=== PATIENT | male | born 1960 | race Caucasian/White ===

== ENCOUNTER 2017-04-10 12:36 | Inpatient (IN) | payer MEDICARE, MEDICAID ==
[~2017-04-10] VITALS: Ht 172.7 cm; Wt 82.7 kg
--- NOTE | 2017-04-10 13:15 | NUR ---
BB FAMILY FOR MED CLEARANCE TO GO BACK TO [facility], calli noted, vss, resp even and unlabored, waiting for md baptiste.
[2017-04-10 13:48] LABS: BASOPHILS # (AUTO) 0.2 /CMM (0.0-0.2); BASOPHILS % (AUTO) 1.7 % (0.0-2.0); EOSINOPHILS # (AUTO) 0.1 /CMM (0.0-0.7); EOSINOPHILS % (AUTO) 0.6 % (0.0-6.0); HEMATOCRIT 50 % (39-51); HEMOGLOBIN 16.6 g/dL (13.5-17.5); LYMPHOCYTES # (AUTO) 1.4 /CMM (0.8-4.8); LYMPHOCYTES % (AUTO) 14.4 % (20.0-44.0); MEAN CORPUSCULAR HEMOGLOBIN 31 PG (26.0-33.0); MEAN CORPUSCULAR HGB CONC 33 g/dl (31.0-36.0); MEAN CORPUSCULAR VOLUME 94 fL (80-96); MONOCYTES # (AUTO) 0.9 /CMM (0.1-1.30); MONOCYTES % (AUTO) 9.1 % (2.0-12.0); NEUTROPHILS # (AUTO) 6.9 /CMM (1.8-8.9); NEUTROPHILS % (AUTO) 74.2 % (43.0-81.0); PLATELET COUNT (AUTO) 184 /CMM (150-450); RDW COEFFICIENT OF VARIATION 12.2 (11.5-15.0); RED BLOOD CELL COUNT(AUTO) 5.29 MIL/uL (4.5-6.0); WHITE BLOOD COUNT (AUTO) 9.5 K/uL (4.3-11.0)
[2017-04-10 13:56] LABS: CALCIUM, SERUM 10.2 mg/dL (8.5-10.1); CREATININE 1.4 mg/dL (0.6-1.3); POTASSIUM 3.7 mmol/L (3.5-5.1)
--- NOTE | 2017-04-10 14:52 | NUR ---
REPORT GIVEN TO SASHA RN; CONTINUE PLAN OF CARE.
[2017-04-10] MEDS ORDERED: PRED2.5T PO (15:01)
[2017-04-10] MEDS ORDERED: LEVE500T9 PO (15:01)
[2017-04-10] MEDS ORDERED: TACR5CAP3 PO (15:01)
[2017-04-10] MEDS ORDERED: GABA-532 PO (15:01)
[2017-04-10] MEDS ORDERED: SIRO0.5T3 PO (15:01)
[2017-04-10] MEDS ORDERED: SULF1TAB48 PO (15:01)
[2017-04-10] MEDS ORDERED: PHEN300C6 PO (15:01)
--- NOTE | 2017-04-10 15:04 | NUR ---
MS RN ADMITTING NOTES PT ADMITTED TO UNIT VIA WHEELCHAIR ACCOMPANIED BY ER NURSE. A/O X 3. VERBALLY RESPONSIVE WITH NO C/O PAIN OR DISCOMFORTS. PT WT ADMITTING DIAGNOSIS OF RENAL INSUFFICIENTLY WITH SIGNIFICANT HX OF RESPIRATORY DISTRESS, LUNG INFECTION, KIDNEY TRANSPLANT, SEIZURE AND DEMENTIA. PT ORIENTED TO HIS ROOM AND UNIT. ON ROOM AIR, BREATHING EVEN AND UNLABORED. REFUSED IV ACCESS. SKIN IS INTACT. V/S TAKEN AND RECORDED. PLACED BED IN LOW, LOCK WITH SIDE-RAILS UP X2. CALL LIGHT AND BEDSIDE TABLE PLACED WITHIN EASY REACH OF PT. MD MADE AWARE OF ADMISSION. WILL CONTINUE TO MONITOR.
[2017-04-10 16:00] VITALS: BP 122/82
[2017-04-10] MEDS ORDERED: ZOLPIDEM TARTRATE 5 MG TABLET PO PRN (16:30)
[2017-04-10] MEDS ORDERED: Z GUARD REMEDY 2 OZ OINT TP PRN (16:30)
[2017-04-10] MEDS ORDERED: HYDROCODONE/APAP 5/325MG 1 EACH TABLET PO PRN (16:30)
[2017-04-10] MEDS ORDERED: MAG HYDROX/AL HYDROX/SIMETH 30 ML UDC PO PRN (16:30)
[2017-04-10] MEDS ORDERED: ONDANSETRON HCL/PF 4 MG/2 ML VIAL IVP PRN (16:30)
[2017-04-10] MEDS ORDERED: MAGNESIUM HYDROXIDE 30 ML UDC PO PRN (16:30)
[2017-04-10] MEDS: GABAPENTIN 100 MG CAPSULE PO SCH (18:16)
[2017-04-10] MEDS: TACROLIMUS ANHYDROUS PO SCH (19:14)
--- NOTE | 2017-04-10 19:40 | NUR ---
MS RN CLOSING NOTES: PT AWAKE AND RESTING IN BED. A/O X 4 AND VERBALLY RESPONSIVE. NO SIGNIFICANT CHANGES NOTED SINCE ADMISSION THIS AFTERNOON. ON ROOM AIR, BREATHING EVEN AND UNLABORED. ALL NEEDS AND CARE ATTENDED WELL. BED IN LOW/ LOCKED POSITION WITH SIDE RAILS X 2 UP. BEDSIDE TABLE AND CALL LIGHT WITHIN PT'S REACH. ENDORSED TO OVERCOIL STEPPER NURSE FOR NEFTALI..
[2017-04-10 20:00] VITALS: BP 126/74
--- NOTE | 2017-04-10 20:00 | NUR ---
MS RN: RECEIVED PATIENT ON BED, AWAKE, PATIENT APPEARS PLEASANT, HYPERVERBAL, ABLE TO MAKE NEEDS KNOWN. NO COMPLAINS OF PAIN OR DISCOMFORT THIS TIME OF ASSESSMENT. NO COMPLICATIONS NOTED THIS TIME. WILL MONITOR PATIENT.
[2017-04-10] MEDS: LEVETIRACETAM (250 MG) 250 MG TABLET PO SCH (21:16)
[2017-04-10] MEDS: PHENYTOIN EXTENDED RELEASE 100 MG CAPSULE PO SCH (21:17)
[2017-04-10] MEDS: ACETAMINOPHEN 325 MG TABLET PO PRN (21:20)
--- NOTE | 2017-04-11 07:00 | NUR ---
MS RN CLOSING NOTES: PATIENT IN BED, ASLEEP,. EASILY AROUSES. NO COMPLAINS OF PAIN OR DISCOMFORT THIS TIME. WILL ENDORSE PATIENT TO DAY SHIFT NURSE.
--- NOTE | 2017-04-11 07:15 | NUR ---
RN NOTES PT IS RESTING IN BED COMFORTABLY ON RA, RESPIRATIONS ARE EVEN AND UNLABORED. NO IV ACCESS. SAFETY MEASURES ARE IN PLACE, CALL LIGHT IS IN REACH. WILL CONTINUE TO MONITOR.
[2017-04-11 07:55] LABS: CALCIUM, SERUM 9.8 mg/dL (8.5-10.1); CREATININE 1.3 mg/dL (0.6-1.3); MAGNESIUM 1.5 mg/dL (1.8-2.4); PHOSPHORUS 2.4 mg/dL (2.5-4.9); POTASSIUM 3.8 mmol/L (3.5-5.1)
[2017-04-11 08:00] VITALS: BP 135/75
[2017-04-11] MEDS: TACROLIMUS ANHYDROUS PO SCH ×3 (08:20→17:18)
[2017-04-11] MEDS: GABAPENTIN 100 MG CAPSULE PO SCH ×3 (08:20→17:18)
[2017-04-11] MEDS: predniSONE 10 MG TABLET PO SCH (08:20)
[2017-04-11] MEDS: LEVETIRACETAM (250 MG) 250 MG TABLET PO SCH ×2 (08:21→21:03)
[2017-04-11 10:53] LABS: BASOPHILS # (AUTO) 0.1 /CMM (0.0-0.2); BASOPHILS % (AUTO) 0.8 % (0.0-2.0); EOSINOPHILS # (AUTO) 0.1 /CMM (0.0-0.7); EOSINOPHILS % (AUTO) 2.2 % (0.0-6.0); HEMATOCRIT 50 % (39-51); HEMOGLOBIN 16.1 g/dL (13.5-17.5); LYMPHOCYTES % (AUTO) 29.1 % (20.0-44.0); MEAN CORPUSCULAR HEMOGLOBIN 31 PG (26.0-33.0); MEAN CORPUSCULAR HGB CONC 32 g/dl (31.0-36.0); MEAN CORPUSCULAR VOLUME 95 fL (80-96); MONOCYTES # (AUTO) 0.8 /CMM (0.1-1.30); MONOCYTES % (AUTO) 11.3 % (2.0-12.0); NEUTROPHILS # (AUTO) 3.8 /CMM (1.8-8.9); NEUTROPHILS % (AUTO) 56.6 % (43.0-81.0); PLATELET COUNT (AUTO) 182 /CMM (150-450); RDW COEFFICIENT OF VARIATION 13.6 (11.5-15.0); RED BLOOD CELL COUNT(AUTO) 5.26 MIL/uL (4.5-6.0); WHITE BLOOD COUNT (AUTO) 6.7 K/uL (4.3-11.0)
[2017-04-11] MEDS ORDERED: K PHOS NEUTRAL 250 MG TABLET PO ONE (12:00)
[2017-04-11] MEDS ORDERED: Magnesium 1GM/D5W 100ML PREMIX 100 ML IV SCH (12:00)
[2017-04-11] MEDS ORDERED: MAGNESIUM OXIDE 400 MG TABLET PO ONE (12:00)
[2017-04-11 16:00] VITALS: BP 134/76
[2017-04-11] MEDS ORDERED: POLYVINYL ALCOHOL 15 ML BOTTLE EACHEYE PRN (16:00)
[2017-04-11] MEDS: SIROLIMUS 0.5 MG TABLET PO SCH (17:18)
[2017-04-11] MEDS: SIROLIMUS 2 MG PO SCH (17:21)
--- NOTE | 2017-04-11 18:44 | NUR ---
RN NOTES PT RESTING IN BED ON RA, RESPIRATIONS ARE EVEN AND UNLABORED. PT SHOWS NO SIGNS OF DISTRESS. ALL MEDS WERE GIVEN ORDERED, PT NEEDS MET. SAFETY MEASURES ARE IN PLACE, CALL LIGHT IS IN REACH. WILL ENDORSE TO CISTERN ROOM WORKING SUPERVISOR RN FOR CONTINUITY OF CARE.
[2017-04-11 20:00] VITALS: BP 102/62
--- NOTE | 2017-04-11 20:00 | NUR ---
RN NOTE VSS 97.9-70-20 BP 102/62. SATS 99% ON ROOM AIR. PATIENT IS A&O WITH A SLIGHTLY GARBLED SPEECH BUT APPROPRIATE RESPONSES. PATIENT'S SKIN IS WARM, DRY, AND INTACT. PATIENT HAS A RIGHT UPPER ARM AV SHUNT WITH A GOOD BRUIT & THRILL. PATIENT DOES ALSO VOID QUANTITY SUFFICIENT OF A CLEAR, YELLOW, URINE. ABDOMEN SOFT WITH AUDIBLE BOWEL SOUNDS. NO JVD BUT PATIENT HAS A 1+, NONPITTING EDEMA TO BLES BUT WITH GOOD STRONG PEDAL PULSES EASILY PALPABLE. LUNGS ARE CTA AND COORDINATELY, PT IS ON ROOM AIR. PATIENT SHOWS NO SIGNS OF SEIZURES OR TREMORS AT THIS TIME. PT IS WHEELCHAIR DEPENDENT AND IS CAPABLE OF A STANDBY ASSIST TO & FROM. PATIENT DENIES ANY PAINS OR DISCOMFORTS. PATIENT SHOWS NO SIGNS OF ACUTE CARDIAC/RESPIRATORY DISTRESS OR SUPPRESSION.
[2017-04-11] MEDS: PHENYTOIN EXTENDED RELEASE 100 MG CAPSULE PO SCH (21:42)
[2017-04-12 04:00] VITALS: BP 131/75
--- NOTE | 2017-04-12 06:00 | NUR ---
RN NOTE VSS @ 04:00 WERE 96.7-75-20 BP 131/75. SATS 96% ON ROOM AIR. PATIENT RESTS QUIETLY. PATIENT SHOWS NO SIGNS OF ACUTE CARDIAC/RESPIRATORY DISTRESS OR SUPPRESSION. TODAY'S WEIGHT PER RN IS 172.3#.
[2017-04-12 08:00] VITALS: BP 119/76
--- NOTE | 2017-04-12 08:08 | NUR ---
MS RN OPENING NOTE. RECEIVED PT A&0X3 BUT PT'S DIALOGUE IS HARD TO FOLLOW. PT OOB IN WHEELCHAIR AWAITING BREAKFAST. PT TOLERATING ROOM AIR WITH NO SOB AND SAO2 95% WITH RA. PT REPORTING NO PAIN. PT IS WITHOUT IVC. PT BRIEFED ON TODAY'S POC AND IS WITHOUT CONCERN OR COMPLAINT AT THIS TIME.
[2017-04-12 08:29] LABS: CALCIUM, SERUM 10.1 mg/dL (8.5-10.1); CREATININE 1.1 mg/dL (0.6-1.3); PHOSPHORUS 2.4 mg/dL (2.5-4.9); POTASSIUM 3.6 mmol/L (3.5-5.1)
[2017-04-12] MEDS: TACROLIMUS ANHYDROUS PO SCH ×3 (08:37→17:46)
[2017-04-12] MEDS: LEVETIRACETAM (250 MG) 250 MG TABLET PO SCH ×2 (08:38→21:38)
[2017-04-12] MEDS: GABAPENTIN 100 MG CAPSULE PO SCH ×3 (08:39→17:45)
[2017-04-12] MEDS: predniSONE 10 MG TABLET PO SCH (08:39)
[2017-04-12] MEDS ORDERED: SULFAMETH/TRIMETH 800/160 MG 1 UDTAB TABLET PO SCH (09:00)
[2017-04-12] MEDS: SIROLIMUS 2 MG PO SCH (09:02)
[2017-04-12] MEDS: SIROLIMUS 0.5 MG TABLET PO SCH (09:03)
--- NOTE | 2017-04-12 13:00 | NUR ---
DAUGHTER CALLED, REQUESTING A CALL WHEN PT IS D/C. DAUGHTER NAME CHRISTIANO- [phone]
[2017-04-12] MEDS ORDERED: K PHOS NEUTRAL 250 MG TABLET PO ONE (13:30)
[2017-04-12 16:00] VITALS: BP 122/62
[2017-04-12] MEDS: ACETAMINOPHEN 325 MG TABLET PO PRN (17:49)
--- NOTE | 2017-04-12 17:53 | NUR ---
MS RN CLOSING NOTES. PT REMAINS A&0X3 WITH GARBLED SPEECH, THAT IS AT TIMES HARD TO FOLLOW. PT RESTING IN BED AND TOLERATING ROOM AIR WITH NO SOB. PT REPORTING MINOR ACHES, CONSTIPATION AND DRY EYES- PRN'S ADMINISTERED WITH GOOD EFFECT. PT WITHOUT CONCERN OR COMPLAINT AT THIS TIME. ALL DAY NURSE DUTIES ATTENDED TO, WILL ENDORSE TO NIGHT NURSE.
--- NOTE | 2017-04-12 19:20 | NUR ---
MS RN OPENING NOTES RECEIVED PT IN BED AWAKE,ALERT,VERBALLY RESPONSIVE, ON ROOM AIR, NO SOB,NO APPARENT DISTRESS NOTED.DENIES ANY PAIN OR DISCOMFORT AT THIS TIME. CALL LIGHT WITHIN REACH.KEPT CLEAN AND COMFORTABLE.ATTENDED ALL NEEDS
[2017-04-12 20:31] VITALS: BP 126/75
[2017-04-12] MEDS: PHENYTOIN EXTENDED RELEASE 100 MG CAPSULE PO SCH (21:38)
[2017-04-13 00:42] VITALS: BP 126/75
--- NOTE | 2017-04-13 06:16 | NUR ---
MS RN NOTES PT ALERT,AWAKE,VERBALLY RESPONSIVE,ON ROOM AIR,RESPIRATIONS EVEN, UNLABORED,NO SOB NOTED.DENIES ANY PAIN OR DISCOMFORT AT THIS TIME.CALL LIGHT WITHIN REACH.WILL CONTINUE TO MONITOR ACCORDINGLY
--- NOTE | 2017-04-13 07:58 | NUR ---
MS RN OPENING NOTES. PT A&0X2 RESTING IN BED AND READY FRO BREAKFAST. PT TOLERATING ROOM AIR WITH NO SOB. PT REPORTING NO PAIN. PT REQUESTING EYE DROPS-WILL ADMINISTER. PT REMAINS WITHOUT IVC. BED IN LOWEST LOCKED POSITION WITH HANDRAILSX3 AND CALL BOYLE WITHIN REACH. PT BRIEFED ON TODAY'S POC, PT WITHOUT CONCERNS OR COMPLAINTS AT THIS TIME.
[2017-04-13 08:00] VITALS: BP 125/77
[2017-04-13 08:35] LABS: BASOPHILS % (AUTO) 0.6 % (0.0-2.0); EOSINOPHILS # (AUTO) 0.1 /CMM (0.0-0.7); HEMATOCRIT 47 % (39-51); HEMOGLOBIN 15.1 g/dL (13.5-17.5); LYMPHOCYTES % (AUTO) 31.5 % (20.0-44.0); MEAN CORPUSCULAR HEMOGLOBIN 31 PG (26.0-33.0); MEAN CORPUSCULAR HGB CONC 33 g/dl (31.0-36.0); MEAN CORPUSCULAR VOLUME 95 fL (80-96); MONOCYTES # (AUTO) 0.9 /CMM (0.1-1.30); NEUTROPHILS # (AUTO) 3.3 /CMM (1.8-8.9); NEUTROPHILS % (AUTO) 51.9 % (43.0-81.0); PLATELET COUNT (AUTO) 190 /CMM (150-450); RED BLOOD CELL COUNT(AUTO) 4.88 MIL/uL (4.5-6.0); WHITE BLOOD COUNT (AUTO) 6.4 K/uL (4.3-11.0)
[2017-04-13 08:57] LABS: CALCIUM, SERUM 9.5 mg/dL (8.5-10.1); CREATININE 1.3 mg/dL (0.6-1.3); PHOSPHORUS 2.8 mg/dL (2.5-4.9)
[2017-04-13 09:11] LABS: POTASSIUM 3.9 mmol/L (3.5-5.1)
[2017-04-13] MEDS: GABAPENTIN 100 MG CAPSULE PO SCH ×2 (09:22→13:53)
[2017-04-13] MEDS: LEVETIRACETAM (250 MG) 250 MG TABLET PO SCH (09:22)
[2017-04-13] MEDS: predniSONE 10 MG TABLET PO SCH (09:25)
--- NOTE | 2017-04-13 09:26 | NUR ---
RN NOTES. PHARMACY CONTACTED RE HOME MEDICATIONS NOT AVAILABLE. PHARMACY TO DISPENSE WHEN READY.
[2017-04-13] MEDS: SIROLIMUS 0.5 MG TABLET PO SCH (11:32)
[2017-04-13] MEDS: TACROLIMUS ANHYDROUS PO SCH ×2 (11:32→13:52)
--- NOTE | 2017-04-13 12:11 | NUR ---
RN NOTES. PT ENDORSED TO KAREN AT [facility]. 1210.
--- NOTE | 2017-04-13 14:03 | NUR ---
RN CLOSING NOTES. PT A&0X3. TOLERATING ROOM AIR AND NO SOB WITH ALL VITALS WNL. NO IVC. ALL SKIN REMAINS INTACT. ALL BELONGINGS ACCOUNTED FOR AND DOCUMENT SIGNED. PT BRIEFED ON [facility] D/C PACKET, PACKET SUPPLIED TO EMT TRANSPORT. PT MEDICATIONS RETURNED, PROVIDED TO EMT. SNF PREVIOUSLY ENDORSED. PT ENDORSED TO EMT- NO FURTHER QUESTIONS. PT IS WITHOUT CONCERNS OR COMPLAINTS A THIS TIME. PT WHEEL CHAIR LEFT WITH SIGNALS INTELLIGENCE ANALYSIS MANAGER.
== END 2017-04-13 14:00 | DRG 917 ==
LOC: ER 12:41 → MED 15:33
PROVIDERS: ADMIT Internal Medicine; ATTEND Internal Medicine
DX: T59.811A Toxic effect of smoke, accidental (unintentional), initial encounter (principal); G92 Toxic encephalopathy; N17.0 Acute kidney failure with tubular necrosis; Z94.0 Kidney transplant status; Z87.820 Personal history of traumatic brain injury; G40.909 Epilepsy, unspecified, not intractable, without status epilepticus; Y92.129 Unspecified place in nursing home as the place of occurrence of the external cause; N18.9 Chronic kidney disease, unspecified
CPT/HCPCS: 36415; 80048-TC; 83735-TC; 84100-TC; 85025-TC; 87081-TC

== ENCOUNTER 2018-01-12 15:00 | Inpatient (IN) | payer MEDICARE, MEDICAID ==
[~2018-01-12] VITALS: Ht 172.7 cm; Wt 81.2 kg
[~2018-01-12 15:00] MED LIST: GABA-532 PO; LEVE500T9 PO; PHEN300C6 PO; PRED2.5T PO; SIRO0.5T3 PO; SULF1TAB48 PO; TACR5CAP3 PO
--- NOTE | 2018-01-12 15:30 | NUR ---
SENT BY PMD TO R/O DVT, PRESENTS W/ RLE EDEMA. NAD NOTED, VSS, RESP EVEN AND UNLABORED, PT WAS PUT MONITOR, WAITING FOR MD RAMIREZ.
[2018-01-12] MEDS ORDERED: POLY15DR40 EACHEYE (16:28)
[2018-01-12] MEDS ORDERED: ACET-868 PO (16:28)
[2018-01-12] MEDS ORDERED: AMIN30LI4 PO (16:28)
[2018-01-12] MEDS ORDERED: ASPI-1152 PO (16:28)
[2018-01-12] MEDS ORDERED: LORA2VIA11 IM (16:28)
[2018-01-12] MEDS ORDERED: PHEN-410 PO (16:28)
[2018-01-12] MEDS ORDERED: APIX5TAB PO (16:28)
[2018-01-12] MEDS ORDERED: ACET-2605 PO (16:28)
[2018-01-12] MEDS ORDERED: MULT-447 PO (16:28)
[2018-01-12] MEDS ORDERED: GABA-534 PO (16:28)
[2018-01-12] MEDS ORDERED: OMEG1CAP PO (16:28)
[2018-01-12 17:27] LABS: CALCIUM, SERUM 9.3 mg/dL (8.5-10.1); CREATININE 1.2 mg/dL (0.6-1.3); POTASSIUM 3.8 mmol/L (3.5-5.1)
[2018-01-12 17:31] LABS: BASOPHILS # (AUTO) 0.1 /CMM (0.0-0.2); BASOPHILS % (AUTO) 1.2 % (0.0-2.0); EOSINOPHILS % (AUTO) 0.6 % (0.0-6.0); HEMATOCRIT 46 % (39-51); HEMOGLOBIN 14.8 g/dL (13.5-17.5); LYMPHOCYTES # (AUTO) 1.8 /CMM (0.8-4.8); LYMPHOCYTES % (AUTO) 21.6 % (20.0-44.0); MEAN CORPUSCULAR HEMOGLOBIN 31 PG (26.0-33.0); MEAN CORPUSCULAR HGB CONC 33 g/dl (31.0-36.0); MEAN CORPUSCULAR VOLUME 95 fL (80-96); MONOCYTES # (AUTO) 0.8 /CMM (0.1-1.30); NEUTROPHILS # (AUTO) 5.6 /CMM (1.8-8.9); NEUTROPHILS % (AUTO) 67.6 % (43.0-81.0); PLATELET COUNT (AUTO) 182 /CMM (150-450); RED BLOOD CELL COUNT(AUTO) 4.78 MIL/uL (4.5-6.0); WHITE BLOOD COUNT (AUTO) 8.4 K/uL (4.3-11.0)
--- NOTE | 2018-01-12 17:48 | NUR ---
INITIAL FINDING OF DUPLEX VENOUS LOWER EXT RIGHT EXAM SHOWED POSITIVE DVT AT POPV LEVEL. ADVISED DR. REINOSO, RN SIMONA AND PARKER LO OF PRELIMINARY RESULTS.
--- NOTE | 2018-01-12 18:08 | NUR ---
CALLED [facility] BOOKMAKER WAS PAGED.
[2018-01-12] MEDS ORDERED: ENOXAPARIN SODIUM 80 MG/0.8 ML DISP.SYRIN SQ ONE (18:28)
[2018-01-12] MEDS ORDERED: ENOXAPARIN SODIUM 30 MG/0.3 ML DISP.SYRIN SQ ONE (18:30)
--- NOTE | 2018-01-12 18:38 | NUR ---
TELE [phone]
[2018-01-12 20:30] VITALS: BP 135/72
[2018-01-12 20:47] VITALS: BP 135/72
--- NOTE | 2018-01-12 21:00 | NUR ---
RN NOTE; ADMITTED A 57 Y/O, A, OX3, FORGETFUL. BREATHING EVENLY. NO SOB. NAD . SKIN WARM AND DRY, DENIED ANY PAIN OR DISCOMFORT AT THIS TIME,. VSS. ASSISTED PT TO THE BED . NEEDS ATTENDED . BED LOW LOCKED,. CALL LIGHT WITHIN REACH. WILL CONT TO MONITOR AND WILL F/U W/ MD'S ORDERS.
[2018-01-12] MEDS ORDERED: LORAZEPAM INJ 2 MG/ML VIAL IM PRN (21:30)
[2018-01-12] MEDS ORDERED: MISCELLANEOUS MED 1 EA EA PO PRN (21:30)
[2018-01-12] MEDS: POLYVINYL ALCOHOL 15 ML BOTTLE EACHEYE SCH (21:30)
[2018-01-12] MEDS ORDERED: ACETAMINOPHEN 325 MG TABLET PO PRN (21:30)
[2018-01-12] MEDS ORDERED: LEVETIRACETAM (250 MG) 250 MG TABLET PO ONE (22:30)
--- NOTE | 2018-01-12 22:30 | NUR ---
MS/RN NOTES PT. REFUSING FULL BODY ASSESSMENT. PT. STATES HE WANTS TO BE LEFT ALONE AND NOT TOUCHED. WILL CONTINUE TO MONITOR.
[2018-01-12] MEDS: SULFAMETH/TRIMETH 800/160 MG 1 UDTAB TABLET PO SCH (22:33)
[2018-01-13] MEDS: ENOXAPARIN SODIUM 80 MG/0.8 ML DISP.SYRIN SQ SCH ×2 (06:31→17:29)
--- NOTE | 2018-01-13 06:49 | NUR ---
MS/RN NOTES PT. IS LYING IN BED. AWAKE, ALERT AND ORIENTED X3 WITH PERIODS OF CONFUSION NOTED. PT. IS BREATHING EVEN AND UNLABORED ON ROOM AIR. NO SOB, RESPIRATORY DISTRESS OR COMPLAINTS OF PAIN NOTED AT THIS TIME AND THROUGHOUT SHIFT. PT. WITH LEFT WRIST IV SALINE LOCK PRESENT, PATENT AND INTACT. PT. CONTINUES TO REFUSE FULL BODY ASSESSMENT. PT. HOME MEDICATION SIROLIMUS NOT AVAILABLE PER PHARMACY ENDORSED TO DAYSHIFT NURSE TARIQ TO FOLLOW UP. BED LOCKED AND IN LOWEST POSITION, SIDE RAILS UP X2, BED ALARM ON, CALL LIGHT WITHIN REACH, WILL ENDORSE TO DAYSHIFT NURSE FOR CONTINUITY OF CARE.
--- NOTE | 2018-01-13 07:19 | NUR ---
RN OPENING NOTES RECEIVED PATIENT IN BED RESTING. A/OX3-4 WITH EPISODE OF CONFUSION NOTED. NO ACUTE DISTRESS, NO SOB. DENIED PAIN OR DISCOMFORT AT THIS TIME. STILL REFUSES FULL BODY SKIN ASSESSMENT. TOLERATING ROOM AIR, O2SAT AT 94%. IV SITE INTACT AND PATENT. KEPT PATIENT SAFE AND COMFORTABLE. BED IN LOW/LOCKED, SEIZURE PRECAUTIONS INITIATED, PADDED SIDERAILS UPX2. CALL LIGHT IN REACH. WILL CONTINUE TO MONIOTR ACCORDINGLY.
[2018-01-13 08:00] VITALS: BP 109/70
[2018-01-13 08:14] LABS: BASOPHILS % (AUTO) 0.2 % (0.0-2.0); EOSINOPHILS % (AUTO) 0.2 % (0.0-6.0); HEMATOCRIT 46 % (39-51); HEMOGLOBIN 14.8 g/dL (13.5-17.5); LYMPHOCYTES # (AUTO) 1.1 /CMM (0.8-4.8); MEAN CORPUSCULAR HEMOGLOBIN 32 PG (26.0-33.0); MEAN CORPUSCULAR HGB CONC 32 g/dl (31.0-36.0); MEAN CORPUSCULAR VOLUME 97 fL (80-96); MONOCYTES # (AUTO) 1.1 /CMM (0.1-1.30); MONOCYTES % (AUTO) 6.8 % (2.0-12.0); NEUTROPHILS # (AUTO) 13.6 /CMM (1.8-8.9); NEUTROPHILS % (AUTO) 85.8 % (43.0-81.0); PLATELET COUNT (AUTO) 190 /CMM (150-450); RDW COEFFICIENT OF VARIATION 12.4 (11.5-15.0); WHITE BLOOD COUNT (AUTO) 15.8 K/uL (4.3-11.0)
[2018-01-13 08:20] LABS: CREATININE 1.3 mg/dL (0.6-1.3); POTASSIUM 3.5 mmol/L (3.5-5.1)
[2018-01-13] MEDS: POLYVINYL ALCOHOL 15 ML BOTTLE EACHEYE SCH ×2 (08:29→17:27)
[2018-01-13] MEDS: LEVETIRACETAM (250 MG) 250 MG TABLET PO SCH ×2 (08:31→21:38)
[2018-01-13] MEDS: GABAPENTIN 300 MG CAPSULE PO SCH ×3 (08:31→17:26)
[2018-01-13] MEDS: predniSONE 5 MG TABLET PO SCH (08:32)
[2018-01-13] MEDS: MULTIVIT, IRON, MIN NO. 8, FA 1 TAB PO SCH (08:35)
[2018-01-13] MEDS: ASPIRIN EC 81 MG TABLET.DR PO SCH (08:38)
[2018-01-13] MEDS: PROSOURCE / PROSTAT (PYXIS) 30 ML UDC GT SCH (08:46)
--- NOTE | 2018-01-13 08:46 | NUR ---
BACTRIM TAB VERIFIED WITH DIONNE. PER HARSHA TRUONG TODAY'S DOSE. Addendum: 01/13/18 at 0848 by TARIQ SANCEHZ RETURNED BACTRIM TABLET TO [facility]
[2018-01-13 08:47] LABS: INR 1.08 (0.87-1.13)
[2018-01-13] MEDS ORDERED: SIROLIMUS 0.5 MG PO SCH ×2 (09:00)
[2018-01-13] MEDS ORDERED: APIXABAN 5 MG TABLET PO SCH ×2 (09:00)
[2018-01-13] MEDS ORDERED: TACROLIMUS ANHYDROUS 1 MG CAPSULE PO SCH (09:00)
--- NOTE | 2018-01-13 12:08 | NUR ---
CALLED FACILITY, THEY CAN NOT PROVIDE MEDICATION SIROLIMUS. DR DUMONT ON THE NSG STATION AND NOTIFIED HIM. PER DR DUMONT, ITS OK TO HOLD THE MEDICATION, VERIFIED/CLARIFIED ORDER 2X.
--- NOTE | 2018-01-13 13:06 | NUR ---
PER DR DUMONT, RESUME THE MEDICATION SIROLIMUS. CASE MANAGEMENT MADE AWARE THAT [facility]) CAN NOT PROVIDE THE MEDICATION TO THE HOSPITAL. PER CASE MGT KIMI, SHE'LL CALL [facility] REGARDING THE MEDICATIONS
--- NOTE | 2018-01-13 14:17 | NUR ---
PER CASE MANAGEMENT, [facility] CAN NOT PROVIDE SIROLIMUS. PHARMACY ([facility]) MADE AWARE, WILL NOTIFTY
[2018-01-13 16:00] VITALS: BP 90/58
[2018-01-13 16:27] LABS: FREE PSA 0.12 ng/mL (0.00-45); PROSTATE SPECIFIC ANTIGEN SCR 0.51 ng/mL (0.00-4.00); THYROID STIMULATING HORMONE 0.934 uIU/mL (0.358-3.74); URIC ACID 3.7 mg/dL (2.6-7.2)
--- NOTE | 2018-01-13 17:18 | NUR ---
PATIENT FOR CT SCAN WITH CONTRAST. UNABLE TO DO CT SCAN DUE TO IV PATENT AND PATIENT REFUSED TO HAVE IV INSERTED. WILL NOTIFY
--- NOTE | 2018-01-13 17:25 | NUR ---
IV NOT PATENT, REMOVED, APPLIED PRESSURE, NO BLEEDING, NO COMPLICATIONS. REFUSED IV INSERTION AT THE MOMENT. PER PATIENT, DO IT LATER.
--- NOTE | 2018-01-13 19:20 | NUR ---
MS/RN NOTES RECEIVED PT. LYING IN BED. PT. IS AWAKE, ALERT AND ORIENTED X3 WITH PERIODS OF CONFUSION NOTED. PT. IS BREATHING EVEN AND UNLABORED ON ROOM AIR. NO SOB, RESPIRATORY DISTRESS OR COMPLAINTS OF PAIN NOTED AT THIS TIME.PER DAYSHIFT NURSE PT. HAS NO IV ACCESS AT THIS TIME, PT. IS REFUSING AND STATED HE MIGHT ALLOW IV TO BE INSERTED LATER TONIGHT. WILL ATTEMPT TO INSERT IV ACCESS. PER DAYSHIFT NURSE PT. IS TO BE NPO AFTER MIDNIGHT PENDING CT OF ABDOMEN AND PELVIS WITH CONTRAST TOMORROW. BED LOCKED AND IN LOWEST POSITION, SIDE RAILS UP X2, BED ALARM ON, CALL LIGHT WITHIN REACH, WILL CONTINUE TO MONITOR.
--- NOTE | 2018-01-13 19:23 | NUR ---
RN CLOSING NOTES PATIENT IN STABLE CONDITION. ALL NEEDS ATTENDED AND PROVIDED. ALL DUE MEDS GIVEN ORDERED. KEPT PATIENT SAFE AND COMFORTABLE. BED IN LOW/LOCKED POSITION, SIDERAILS UPX2, SEMIFOWLERS, CALL LIGHT IN REACH. ENDORSED TO NIGHT RN FOR NEFTALI.
[2018-01-13 20:48] VITALS: BP 114/61
[2018-01-13] MEDS: PHENYTOIN EXTENDED RELEASE 100 MG CAPSULE PO SCH (21:39)
--- NOTE | 2018-01-14 01:30 | NUR ---
MS/RN NOTES PT. IS REFUSING IV INSERTION AT THIS TIME. PT. STATES HE DOESN'T NEED IT AND DOES NOT WANT THE CT ABDOMEN DONE. EDUCATION PT. ABOUT IMPORTANCE OF IV ACCESS, REINFORCEMENT NEEDED, PT. CONTINUES TO REFUSE. WILL ATTEMPT AGAIN AT A LATER TIME. WILL CONTINUE TO MONITOR.
[2018-01-14] MEDS: ENOXAPARIN SODIUM 80 MG/0.8 ML DISP.SYRIN SQ SCH ×2 (06:00→18:17)
--- NOTE | 2018-01-14 06:14 | NUR ---
MS/RN NOTES PT. IS LYING IN BED RESTING. BREATHING EVEN AND UNLABORED ON ROOM AIR. NO SOB, RESPIRATORY DISTRESS OR COMPLAINTS OF PAIN NOTED AT THIS TIME AND THROUGHOUT SHIFT. PT. CONTINUES TO REFUSE IV ACCESS. ALL PT. NEEDS MET. BED LOCKED AND IN LOWEST POSITION, SIDE RAILS UP X2, BED ALARM ON, CALL LIGHT WITHIN REACH, WILL ENDORSE TO DAYSHIFT NURSE FOR CONTINUITY OF CARE.
[2018-01-14 08:00] VITALS: BP 123/50
[2018-01-14 08:07] LABS: HOMOCYSTEINE, PLASMA 9.7 umol/L (0.0-15.0)
[2018-01-14] MEDS: POLYVINYL ALCOHOL 15 ML BOTTLE EACHEYE SCH ×2 (09:00→16:46)
--- NOTE | 2018-01-14 10:00 | NUR ---
attempt at iv insertion peripherally.unsuccessful
[2018-01-14] MEDS: GABAPENTIN 300 MG CAPSULE PO SCH ×3 (10:18→18:18)
[2018-01-14] MEDS: SULFAMETH/TRIMETH 800/160 MG 1 UDTAB TABLET PO SCH (10:18)
[2018-01-14] MEDS: MULTIVIT, IRON, MIN NO. 8, FA 1 TAB PO SCH (10:18)
[2018-01-14] MEDS: LEVETIRACETAM (250 MG) 250 MG TABLET PO SCH ×2 (10:19→21:30)
[2018-01-14] MEDS: predniSONE 5 MG TABLET PO SCH (10:19)
[2018-01-14] MEDS: PROSOURCE / PROSTAT (PYXIS) 30 ML UDC GT SCH (10:20)
[2018-01-14] MEDS: ASPIRIN EC 81 MG TABLET.DR PO SCH (10:37)
--- NOTE | 2018-01-14 12:00 | NUR ---
[address] lee for midline insertion ok-no response.
--- NOTE | 2018-01-14 13:00 | NUR ---
sound technician supervisor indur contacted for midline placement.
--- NOTE | 2018-01-14 13:40 | NUR ---
manager icu here and made several attempts at iv placement with no success.
[2018-01-14] MEDS: TACROLIMUS ANHYDROUS 1 MG CAPSULE PO SCH ×2 (13:56→21:31)
[2018-01-14 15:10] LABS: CARBOHYDRATE AG 19-9 6 U/mL (0-35)
[2018-01-14 16:00] VITALS: BP 118/71
--- NOTE | 2018-01-14 16:00 | NUR ---
photo taken of rt. arm skin tear.scant amt. sang.drainage.
--- NOTE | 2018-01-14 18:55 | NUR ---
MIDLINE VENDOR HERE AND PLACED MIDLINE IV TO LT. ARM.ENDORSED TO CHERYL RN.
--- NOTE | 2018-01-14 19:30 | NUR ---
RN INITIAL NOTES Patient received in bed, alert, oriented x 3. Patient verbally responsive, garbled speech. Breathing even and unlabored. Not in any distress. Midline IV on left arm intact and patent. No complaints of discomfort as of this time. Patient stable as per the morning RN. Will continue to monitor accordingly
[2018-01-14 20:00] VITALS: BP 128/77
[2018-01-14] MEDS ORDERED: TACROLIMUS ANHYDROUS 1 MG CAPSULE PO SCH (21:00)
[2018-01-14] MEDS: PHENYTOIN EXTENDED RELEASE 100 MG CAPSULE PO SCH (21:31)
[2018-01-14 22:06] LABS: *SPE ALBUMIN 3.1 g/dL (2.9-4.4); *SPE ALPHA-1-GLOBULIN 0.3 g/dL (0.0-0.4); *SPE ALPHA-2-GLOBULIN 0.7 g/dL (0.4-1.0); *SPE BETA GLOBULIN 0.9 g/dL (0.7-1.3); *SPE M-SPIKE Not Observed g/dL (Not Observed)
[2018-01-15] MEDS: ENOXAPARIN SODIUM 80 MG/0.8 ML DISP.SYRIN SQ SCH ×2 (06:10→17:45)
--- NOTE | 2018-01-15 06:58 | NUR ---
RN CLOSING NOTES Patient in bed, alert, oriented x3. Not in any distress. Breathing even and unlabored. According to lab, CT chest, abdo, pelvis with contrast at around 0700- 0800. No complaints as of this time. Patient made aware. All needs attended to. All medications given as ordered. Will endorse NEFTALI to AM shift RN.
--- NOTE | 2018-01-15 07:10 | NUR ---
MSRN OPENING NOTES. PT NPO R/T PROC TODAY. PT RECEIVED A&0X3, TOLERATING ROOM AIR WITHOUT DISTRESS AND DENIES PAIN AT THIS TIME. PT WITH L UA MIDLINE INTACT AND SALINE FLUSH PATENT. PT FOR PROCEDURE TODAY, CONSENT CHECK AND READY. PT BED IN LOWEST LOCKED POSITION WITH HANDRAILSX2 AND CALL BOYLE WITHIN REACH. PT BRIEFED ON TODAY'S POC AND IS WITHOUT CONCERN OR COMPLAIN AT THIS TIME.
[2018-01-15 07:31] LABS: BASOPHILS % (AUTO) 0.2 % (0.0-2.0); CALCIUM, SERUM 9.1 mg/dL (8.5-10.1); CREATININE 1.3 mg/dL (0.6-1.3); EOSINOPHILS % (AUTO) 2.7 % (0.0-6.0); HEMATOCRIT 43 % (39-51); HEMOGLOBIN 13.8 g/dL (13.5-17.5); LYMPHOCYTES # (AUTO) 1.5 /CMM (0.8-4.8); LYMPHOCYTES % (AUTO) 18.4 % (20.0-44.0); MAGNESIUM 1.5 mg/dL (1.8-2.4); MEAN CORPUSCULAR HEMOGLOBIN 32 PG (26.0-33.0); MEAN CORPUSCULAR HGB CONC 33 g/dl (31.0-36.0); MEAN CORPUSCULAR VOLUME 99 fL (80-96); NEUTROPHILS # (AUTO) 5.2 /CMM (1.8-8.9); NEUTROPHILS % (AUTO) 65.7 % (43.0-81.0); PLATELET COUNT (AUTO) 183 /CMM (150-450); POTASSIUM 3.7 mmol/L (3.5-5.1); RDW COEFFICIENT OF VARIATION 12.7 (11.5-15.0)
[2018-01-15 08:00] VITALS: BP 149/41
[2018-01-15] MEDS ORDERED: K PHOS NEUTRAL 250 MG TABLET PO ONE (09:00)
[2018-01-15] MEDS ORDERED: Magnesium 1GM/D5W 100ML PREMIX 1 G in PREMIX 1 EA IV SCH (09:00)
[2018-01-15] MEDS: LEVETIRACETAM (250 MG) 250 MG TABLET PO SCH ×2 (09:09→21:44)
[2018-01-15] MEDS: POLYVINYL ALCOHOL 15 ML BOTTLE EACHEYE SCH ×2 (09:09→17:46)
[2018-01-15] MEDS: predniSONE 5 MG TABLET PO SCH (09:10)
[2018-01-15] MEDS: GABAPENTIN 300 MG CAPSULE PO SCH ×3 (09:10→17:44)
[2018-01-15] MEDS: ASPIRIN EC 81 MG TABLET.DR PO SCH (09:10)
[2018-01-15] MEDS: MULTIVIT, IRON, MIN NO. 8, FA 1 TAB PO SCH (09:10)
[2018-01-15] MEDS: PROSOURCE / PROSTAT (PYXIS) 30 ML UDC GT SCH (09:13)
[2018-01-15] MEDS: TACROLIMUS ANHYDROUS 1 MG CAPSULE PO SCH ×2 (09:19→21:44)
[2018-01-15] MEDS: Magnesium 1GM/D5W 100ML PREMIX 100 ML IV SCH ×2 (09:32→12:24)
[2018-01-15] MEDS ORDERED: IOHEXOL-300 100 ML VIAL IV ONE (09:48)
[2018-01-15] MEDS ORDERED: IV NS 0.9% 250 ML IV ONE (09:49)
[2018-01-15] MEDS ORDERED: CT SWABBABLE VALVE TRANS SET 1 EA INFUS.SET MC ONE (09:49)
--- NOTE | 2018-01-15 14:00 | NUR ---
MSRN. PT SEEN BY PT. AMBULATING WITH STANDBY ASSISTANCE. FAMILY AT BEDSIDE.
[2018-01-15 16:00] VITALS: BP 147/77
--- NOTE | 2018-01-15 18:35 | NUR ---
MSRN CLOSING NOTES. PT RECEIVED A&0X3, TOLERATING ROOM AIR WITHOUT DISTRESS AND DENIES PAIN AT THIS TIME. PT WITH L UA MIDLINE INTACT AND SALINE FLUSH PATENT. PT BED IN LOWEST LOCKED POSITION WITH HANDRAILSX2 AND CALL BYOLE WITHIN REACH. ALL DAY NURSE DUTIES ATTENDED TO AND PT IS WITHOUT CONCERN OR COMPLAIN AT THIS TIME. WILL ENDORSE TO NIGHT NURSE AT BEDSIDE FOR NEFTALI.
--- NOTE | 2018-01-15 19:10 | NUR ---
RN INITIAL NOTES Patient received in bed, alert, oriented x 3. Patient verbally responsive. Breathing even and unlabored. Not in any distress. Midline IV on left upper arm intact and patent. No complaints of discomfort as of this time. Patient stable as per the morning RN. Will continue to monitor accordingly
[2018-01-15 20:00] VITALS: BP 144/82
[2018-01-15] MEDS: PHENYTOIN EXTENDED RELEASE 100 MG CAPSULE PO SCH (21:44)
[2018-01-16] MEDS: ENOXAPARIN SODIUM 80 MG/0.8 ML DISP.SYRIN SQ SCH (05:53)
--- NOTE | 2018-01-16 07:23 | NUR ---
RN CLOSING NOTES Patient in bed, alert, oriented x3. Not in any distress. Breathing even and unlabored. No complaints as of this time. All needs attended to. All medications given as ordered. Endorsed NEFTALI to AM shift RN.
--- NOTE | 2018-01-16 07:35 | NUR ---
RN OPENING NOTES RECEIVED PT. PT IS STABLE AND RESTING IN BED. A/OX3, HOWEVER PT'S SPEECH IS DISORGANIZED R/T PREVIOUS TRAUMATIC BRAIN INJURY. PT TO HAVE PT EVAL TODAY 01/16. IV ACCESS LOCATED ON [address], 18G MIDLINE CURRENTLY SL. SAFETY MEASURES IN PLACE, CALL LIGHT WITHIN REACH. WILL CONTINUE TO MONITOR.
[2018-01-16 08:00] VITALS: BP 128/68
[2018-01-16 08:23] VITALS: BP 128/68
[2018-01-16] MEDS: GABAPENTIN 300 MG CAPSULE PO SCH ×2 (08:32→12:11)
[2018-01-16] MEDS: SULFAMETH/TRIMETH 800/160 MG 1 UDTAB TABLET PO SCH (08:32)
[2018-01-16] MEDS: PROSOURCE / PROSTAT (PYXIS) 30 ML UDC GT SCH (08:32)
[2018-01-16] MEDS: ASPIRIN EC 81 MG TABLET.DR PO SCH (08:32)
[2018-01-16] MEDS: predniSONE 5 MG TABLET PO SCH (08:32)
[2018-01-16] MEDS: MULTIVIT, IRON, MIN NO. 8, FA 1 TAB PO SCH (08:32)
[2018-01-16] MEDS: TACROLIMUS ANHYDROUS 1 MG CAPSULE PO SCH (09:51)
[2018-01-16] MEDS: LEVETIRACETAM (250 MG) 250 MG TABLET PO SCH (09:51)
[2018-01-16] MEDS: POLYVINYL ALCOHOL 15 ML BOTTLE EACHEYE SCH (09:51)
[2018-01-16] MEDS ORDERED: K PHOS NEUTRAL 250 MG TABLET PO ONE (11:00)
--- NOTE | 2018-01-16 16:00 | NUR ---
DISCHARGE NOTE PT DISCHARGED TO [facility]. PT UNABLE TO SIGN DC PAPERWORK AND BELONGINGS LIST, WITNESSED BY ADDITIONAL RN. PT REFUSED DC WOUND PICTURES, VERY AGITATED UPON D/C. UNABLE TO COMPREHEND DC TEACHING. PT BELONGINGS GIVEN TO AMBULANCE TRANSPORT. REPORT CALLED AND GIVEN TO JOSEPH BARRON AT [facility]. PT LEFT HOSPITAL IN PRIVATE AMBULANCE WITH [employer]OURNEY[employer] OPERATOR ASSISTANT TRANSPORTATION.
[2018-01-17 12:13] LABS: *ANTITHROMBIN III AG 100 % (72-124); *DILUTE PROTHROMBIN TIME (dPT) 67.6 sec (0.0-55.0); *PTT-LA 49.6 sec (0.0-51.9); *THROMBIN TIME 18.2 sec (0.0-23.0); *dPT CONFIRM RATIO 1.11 Ratio (0.00-1.40); *dRVVT 47.9 sec (0.0-47.0); PROTEIN C ACTIVITY 129 % (73-180)
[2018-01-18 05:13] LABS: *INTERPRETATION Comment: (.)
[2018-01-18 13:11] LABS: CALCITRIOL VIT D,1, 25 DIHYDRO 75.7 pg/mL (19.9-79.3)
== END 2018-01-16 15:45 | DRG 300 ==
LOC: ER 15:01 → TELE 18:41 → MED 21:04
PROVIDERS: ADMIT Internal Medicine Nephrology; ATTEND Internal Medicine Nephrology
DX: I82.431 Acute embolism and thrombosis of right popliteal vein (principal); Z94.0 Kidney transplant status; D68.59 Other primary thrombophilia; Z87.820 Personal history of traumatic brain injury; R56.9 Unspecified convulsions; Z79.01 Long term (current) use of anticoagulants; Z86.718 Personal history of other venous thrombosis and embolism; I10 Essential (primary) hypertension
CPT/HCPCS: 36415; 71045-TC; 71270-TC; 74178; 80048-TC; 80185-TC; 80197; 81240; 81241; 82306; 82378; 82652; 82728-TC; 82746; 83090; 83540-TC; 83615-TC; 83735-TC; 83891; 83900; 83909; 83912; 83970; 84100-TC; 84153-TC; 84154-TC; 84155; 84165; 84443-TC; 84550-TC; 85025-TC; 85300; 85301; 85303; 85610-TC; 85613; 85652-TC; 85670; 85705; 85730-TC; 85732; 86301; 87081-TC; 93971-TC; A4216; A4606; J1650; J3475; J7030; J7050; J7507; J7512; Q9967; Z7610